=== PATIENT | male | born 1970 | race Caucasian/White ===

== ENCOUNTER 2018-10-19 22:18 | Inpatient (IN) | payer OTHER ==
[~2018-10-19] VITALS: Ht 175.3 cm; Wt 97.1 kg
[2018-10-19] MEDS ORDERED: ESTR-95 PO (22:48)
[2018-10-19] MEDS ORDERED: TESTOSTERONE BLOCKER PO (22:48)
[2018-10-19] MEDS ORDERED: METF-960 PO (22:48)
[2018-10-19] MEDS ORDERED: AMLO-511 PO (22:48)
[2018-10-19 22:55] LABS: GLUCOSE,POINT OF CARE 357 MG/DL (70-110)
[2018-10-19] MEDS ORDERED: INSULIN REGULAR, HUMAN 100 UNITS/ML SQ ONE (23:30)
[2018-10-19 23:38] LABS: BASOPHILS % (AUTO) 0.7 % (0.0-2.0); EOSINOPHILS % (AUTO) 0.7 % (1.0-6.0); HEMATOCRIT 40.3 % (41-53); HEMOGLOBIN 13.7 g/dL (13.5-17.5); LYMPHOCYTES # (AUTO) 2.8 K/uL (1.0-4.8); LYMPHOCYTES % (AUTO) 30.8 % (22.0-44.0); MEAN CORPUSCULAR HEMOGLOBIN 30.2 pg (26.0-34.0); MEAN CORPUSCULAR HGB CONC 33.9 G/dL (31.0-37.0); MEAN CORPUSCULAR VOLUME 89 fL (80-100); MONOCYTES # (AUTO) 0.7 K/uL (0.1-1.0); MONOCYTES % (AUTO) 7.9 % (2.0-9.0); NEUTROPHILS # (AUTO) 5.4 K/uL (1.8-7.7); NEUTROPHILS % (AUTO) 59.9 % (40.0-70.0); PLATELET COUNT (AUTO) 406 K/uL (150-450); RED BLOOD CELL COUNT(AUTO) 4.53 MIL/uL (4.50-5.90); RED CELL DISTRIBUTION WIDTH 12.9 % (11.5-14.5)
[2018-10-19 23:49] LABS: ANION GAP 9 mmol/L (8-16); CALCIUM, TOTAL 9.1 mg/dL (8.8-10.5); CARBON DIOXIDE 29 mmol/L (22-29); CHLORIDE 100 mmol/L (98-107); CREATININE 1.09 mg/dL (0.60-1.30); GLOMERULAR FILTR. RATE CALC > 60 mL/min (>60); GLUCOSE,RANDOM 329 mg/dL (70-110); SODIUM SERUM 138 mmol/L (136-145); UREA NITROGEN, BLOOD 12 mg/dL (7-18)
[2018-10-19 23:59] LABS: GLUCOSE,POINT OF CARE 329 MG/DL (70-110)
[2018-10-20 00:02] LABS: ALANINE AMINOTRANSFERASE 123 U/L (12-78); ALBUMIN 3.3 g/dL (3.4-5.0); ALKALINE PHOSPHATASE 46 U/L (46-116); ASPARTATE AMINOTRANSFERASE 85 U/L (15-37); BILIRUBIN,TOTAL 0.3 mg/dL (0.1-1.0); TOTAL PROTEIN, SERUM 7.5 g/dL (6.4-8.2)
[2018-10-20] MEDS ORDERED: LORazepam 2 MG TABLET PO ONE (00:30)
[2018-10-20] MEDS ORDERED: HALOPERIDOL 5 MG TABLET PO PRN (00:45)
[2018-10-20] MEDS ORDERED: LORazepam 2 MG TABLET PO PRN (00:45)
[2018-10-20] MEDS ORDERED: ZOLPIDEM TARTRATE 10 MG TABLET PO PRN (00:45)
[2018-10-20 01:10] LABS: APPEARANCE,URINE CLEAR (CLEAR); BILIRUBIN,URINE NEGATIVE (NEGATIVE); GLUCOSE, URINE (UA) >=1000 mg/dL (NEGATIVE); KETONES,URINE NEGATIVE (NEGATIVE); LEUKOCYTE ESTERASE ,URINE NEGATIVE (NEGATIVE); NITRATE,URINE NEGATIVE (NEGATIVE); OCCULT BLOOD,URINE NEGATIVE (NEGATIVE); PROTEIN,URINE NEGATIVE (NEGATIVE); UROBILINOGEN,URINE 0.2 mg/dL (<=1.0)
[2018-10-20 01:16] LABS: AMPHET/METH SCREEN,URINE NEGATIVE (NEGATIVE); BACTERIA,URINE None Seen /HPF (None Seen); BARBITURATE SCREEN, URINE NEGATIVE (NEGATIVE); BENZODIAZEPINES SCREEN,URINE NEGATIVE (NEGATIVE); CANNABINOID SCREEN,URINE NEGATIVE (NEGATIVE); COCAINE SCREEN,URINE NEGATIVE (NEGATIVE); METHADONE SCREEN, URINE NEGATIVE (NEGATIVE); OPIATE SCREEN,URINE NEGATIVE (NEGATIVE); RBC,URINE None Seen /HPF (0-2); SQUAMOUS EPITHELIAL CELL,UR Moderate /LPF (None Seen); WBC,URINE None Seen /HPF (0-5)
[2018-10-20 01:18] LABS: PHENCYCLIDINE SCREEN,URINE NEGATIVE (NEGATIVE)
[2018-10-20 01:53] LABS: HEMOGLOBIN A1C 7.5 % (4.5-6.2)
[2018-10-20 01:56] LABS: CHOL/HDL RATIO 6.6 (4.2-7.3); CHOLESTEROL 218 mg/dL (131-200); FREE T4 (FREE THYROXINE) 1.15 ng/dL (0.76-1.46); HDL CHOLESTEROL 33 mg/dL (40-60); THYROID STIMULATING HORMONE 10.61 uIU/mL (0.36-3.74); TRIGLYCERIDES 618 mg/dL (15-150)
[2018-10-20 02:15] LABS: GLUCOSE,POINT OF CARE 150 MG/DL (70-110)
[2018-10-20 11:20] LABS: GLUCOSE,POINT OF CARE 127 MG/DL (70-110)
[2018-10-20] MEDS ORDERED: MAG HYDROX/AL HYDROX/SIMETH ES 30 ML SUSPENSION UDCUP PO PRN (21:30)
[2018-10-20] MEDS ORDERED: PETROLATUM,WHITE 28 GM JELLY TP PRN (21:30)
[2018-10-20] MEDS ORDERED: ALBUTEROL SULFATE HFA 90 MCG/PUFF 8 GM INHALER IH PRN (21:30)
[2018-10-20] MEDS ORDERED: LOPERAMIDE HCL 2 MG CAPSULE PO PRN (21:30)
[2018-10-20] MEDS ORDERED: NICOTINE 14 MG/24 HOUR PATCH TD PRN (21:30)
[2018-10-20] MEDS ORDERED: GLUCAGON,HUMAN RECOMBINANT 1 MG VIAL IM PRN (21:30)
[2018-10-20] MEDS ORDERED: MAGNESIUM HYDROXIDE SUSPENSION 30 ML UDCUP PO PRN (21:30)
[2018-10-20] MEDS ORDERED: DOCUSATE SODIUM 100 MG CAPSULE PO PRN (21:30)
[2018-10-20] MEDS ORDERED: ONDANSETRON HCL 4 MG TABLET PO PRN (21:30)
[2018-10-20] MEDS ORDERED: IBUPROFEN 400 MG TABLET PO PRN (21:30)
[2018-10-20] MEDS ORDERED: CloNIDine HCL 0.1 MG TABLET PO PRN (21:30)
[2018-10-20] MEDS ORDERED: GuaiFENesin/D-METHORPHAN [SUGAR-FREE] 200-20MG/10 ML SYRUP UDCUP PO PRN (21:30)
[2018-10-20] MEDS ORDERED: ACETAMINOPHEN 325 MG TABLET PO PRN (21:30)
[2018-10-20] MEDS ORDERED: AmLODIPine BESYLATE 5 MG TABLET PO ONE (21:45)
[2018-10-20 21:57] LABS: GLUCOMETER DEV NAME(LOC) BV2X.; GLUCOSE,POINT OF CARE 164 MG/DL (70-110)
[2018-10-20 22:03] VITALS: BP 150/99
[2018-10-20] MEDS ORDERED: PNEUMOCOCCAL VACCINE POLYVALENT 0.5 ML VIAL [PPSV23] IM ONE (22:30)
[2018-10-20 23:00] VITALS: BP 122/79
[2018-10-21 00:11] VITALS: BP 120/81
[2018-10-21 06:10] LABS: GLUCOMETER DEV NAME(LOC) BV2X.; GLUCOSE,POINT OF CARE 160 MG/DL (70-110)
[2018-10-21] MEDS ORDERED: MetFORMIN HCL 500 MG TABLET PO SCH (07:00)
[2018-10-21] MEDS: MetFORMIN HCL 500 MG TABLET PO SCH ×2 (07:09→16:23)
[2018-10-21] MEDS: INSULIN LISPRO 100 UNITS/ML SQ PRN ×4 (07:10→20:43)
[2018-10-21 08:06] VITALS: BP 140/94
[2018-10-21] MEDS: AmLODIPine BESYLATE 5 MG TABLET PO SCH (08:39)
[2018-10-21] MEDS: ESTRADIOL 1 MG TABLET PO SCH (08:40)
[2018-10-21] MEDS ORDERED: ESTRADIOL 1 MG TABLET PO SCH (09:00)
[2018-10-21 12:09] LABS: GLUCOMETER DEV NAME(LOC) BV2X.; GLUCOSE,POINT OF CARE 160 MG/DL (70-110)
[2018-10-21] MEDS: DULoxetine HCL 20 MG CAPSULE PO SCH (13:18)
[2018-10-21 16:03] VITALS: BP 127/79
[2018-10-21 16:34] LABS: GLUCOMETER DEV NAME(LOC) BV2X.; GLUCOSE,POINT OF CARE 160 MG/DL (70-110)
[2018-10-21] MEDS: MIRTAZAPINE 15 MG TABLET PO SCH (20:34)
[2018-10-21 20:39] LABS: GLUCOMETER DEV NAME(LOC) BV2X.; GLUCOSE,POINT OF CARE 169 MG/DL (70-110)
[2018-10-22 05:18] VITALS: BP 144/98
[2018-10-22] MEDS: INSULIN LISPRO 100 UNITS/ML SQ PRN ×4 (06:46→21:10)
[2018-10-22] MEDS: MetFORMIN HCL 500 MG TABLET PO SCH ×2 (07:10→16:20)
[2018-10-22 07:20] LABS: GLUCOMETER DEV NAME(LOC) BV2X.; GLUCOSE,POINT OF CARE 186 MG/DL (70-110)
[2018-10-22 08:17] VITALS: BP 140/94
[2018-10-22] MEDS: AmLODIPine BESYLATE 5 MG TABLET PO SCH (09:14)
[2018-10-22] MEDS: ESTRADIOL 1 MG TABLET PO SCH (09:14)
[2018-10-22] MEDS: DULoxetine HCL 20 MG CAPSULE PO SCH (09:14)
[2018-10-22 16:05] VITALS: BP 137/90
[2018-10-22 16:59] LABS: GLUCOMETER DEV NAME(LOC) BV2X.; GLUCOSE,POINT OF CARE 165 MG/DL (70-110)
[2018-10-22] MEDS: MIRTAZAPINE 15 MG TABLET PO SCH (20:19)
[2018-10-22 21:19] LABS: GLUCOMETER DEV NAME(LOC) BV2X.; GLUCOSE,POINT OF CARE 176 MG/DL (70-110)
[2018-10-23 06:11] VITALS: BP 140/89
[2018-10-23] MEDS: MetFORMIN HCL 500 MG TABLET PO SCH ×2 (06:25→16:08)
[2018-10-23] MEDS: INSULIN LISPRO 100 UNITS/ML SQ PRN ×3 (06:37→20:31)
[2018-10-23 07:15] LABS: GLUCOMETER DEV NAME(LOC) BV2X.; GLUCOSE,POINT OF CARE 158 MG/DL (70-110)
[2018-10-23 08:03] VITALS: BP 140/99
[2018-10-23] MEDS: AmLODIPine BESYLATE 5 MG TABLET PO SCH (08:57)
[2018-10-23] MEDS: DULoxetine HCL 20 MG CAPSULE PO SCH (08:57)
[2018-10-23] MEDS: ESTRADIOL 1 MG TABLET PO SCH (08:57)
[2018-10-23 10:59] LABS: GLUCOMETER DEV NAME(LOC) BV2X.; GLUCOSE,POINT OF CARE 167 MG/DL (70-110)
[2018-10-23] MEDS ORDERED: AmLODIPine BESYLATE 5 MG TABLET PO ONE (13:00)
[2018-10-23 13:18] VITALS: BP 142/97
[2018-10-23 16:17] VITALS: BP 139/95
[2018-10-23 16:55] LABS: GLUCOMETER DEV NAME(LOC) BV2X.; GLUCOSE,POINT OF CARE 131 MG/DL (70-110)
[2018-10-23] MEDS: MIRTAZAPINE 15 MG TABLET PO SCH (20:03)
[2018-10-23 20:39] LABS: GLUCOMETER DEV NAME(LOC) BV2X.; GLUCOSE,POINT OF CARE 181 MG/DL (70-110)
[2018-10-24 00:35] VITALS: BP 131/86
[2018-10-24] MEDS: MetFORMIN HCL 500 MG TABLET PO SCH (07:10)
[2018-10-24 07:23] LABS: GLUCOMETER DEV NAME(LOC) BV2X.; GLUCOSE,POINT OF CARE 139 MG/DL (70-110)
[2018-10-24 08:03] VITALS: BP 132/85
[2018-10-24] MEDS: ESTRADIOL 1 MG TABLET PO SCH (08:40)
[2018-10-24] MEDS: DULoxetine HCL 20 MG CAPSULE PO SCH (08:41)
[2018-10-24] MEDS ORDERED: AmLODIPine BESYLATE 10 MG TABLET PO SCH (09:00)
[2018-10-24 11:14] LABS: GLUCOMETER DEV NAME(LOC) BV2X.; GLUCOSE,POINT OF CARE 98 MG/DL (70-110)
[2018-10-24] MEDS ORDERED: DULO20CA30 PO (13:05)
[2018-10-24] MEDS ORDERED: MIRT15 PO (13:05)
[2018-10-24] MEDS ORDERED: AMLO-512 PO (13:05)
== END 2018-10-24 15:15 | disposition home or self-care (01) | DRG 885 ==
LOC: EMS 22:20 → B2X 10-20 19:49
PROVIDERS: ADMIT Psychiatry & Neurology Child & Adolescent Psychiatry; ATTEND Psychiatry & Neurology Child & Adolescent Psychiatry
DX: F33.2 Major depressive disorder, recurrent severe without psychotic features (principal); R45.851 Suicidal ideations; E11.9 Type 2 diabetes mellitus without complications; E78.5 Hyperlipidemia, unspecified; F41.9 Anxiety disorder, unspecified; F64.9 Gender identity disorder, unspecified; I10 Essential (primary) hypertension
CPT/HCPCS: 83036; 84439; 84443; 90732; 96372; G0480; J1815